=== PATIENT | male | born 1995 | race Caucasian/White ===

== ENCOUNTER 2017-01-30 09:45 | Emergency (ER) | payer OTHER ==
[2017-01-30 10:03] VITALS: BP 128/74
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
== END 2017-01-30 10:30 | disposition home or self-care (01) ==
LOC: JD.ED 09:45
DX: R51 Headache (principal); V48.5XXA Car driver injured in noncollision transport accident in traffic accident, initial encounter; Y92.415 Exit ramp or entrance ramp of street or highway as the place of occurrence of the external cause; Z88.0 Allergy status to penicillin
CPT/HCPCS: 99282; 99284